=== PATIENT | male | born 2000 | race African-American/Black ===

== ENCOUNTER 2023-03-12 01:55 | Emergency (ER) | payer BC, SELFPAY ==
[2023-03-12 05:28] VITALS: BP 131/82; PULSE 84; RESP 15; TEMP 36.9; O2SAT 100
--- NOTE | 2023-03-12 05:53 | ED_ITS ---
HPI - General Adult General Chief complaint: Allergic Reaction Time Seen by Provider: 03/12/23 05:44 History of Present Illness HPI narrative: had patient is a 22-year-old gentleman who presents emergency department with chief complaint of allergic reaction. The patient reports yesterday he noticed started while the swelling in his hands and then started itching patient states he started to having itchy all over his entire body today and decided to come to the emergency department the patient is unsure of any new exposures did report that a few weeks ago he took some ibuprofen Related Data Allergies Allergy/AdvReac Type Severity Reaction Status Date / Time No Known Allergies Allergy Verified 03/12/23 05:56 Review of Systems Review of Systems: A 10 system review of systems was completed on the patient and is negative except for what is stated in the HPI. Nursing and ancillary documentation was reviewed. Exam Narrative: GENERAL: Well-appearing, well-nourished, and in no acute distress. HEAD: Normocephalic, atraumatic. EYES: PERRLA and EOMI. ENT: Nares clear, no rhinorrhea or epistaxis. Mucous membranes moist. NECK: Supple. CHEST: Clear to auscultation. No respiratory distress. HEART: Regular rate and rhythm. No murmur heard. Normal peripheral pulses. ABDOMEN: Soft, nontender, nondistended, normal active bowel sounds. EXTREMITIES: Normal range of motion. No edema. SKIN: Warm, dry, urticaria rash present. NEURO: No focal deficits. Alert and oriented x3. PSYCH: Normal mood and affect. Course Vital Signs Vital signs: Vital Signs Temperature 36.9 C 03/12/23 05:28 Pulse Rate 84 03/12/23 05:28 Respiratory Rate 15 03/12/23 05:28 Blood Pressure 131/82 03/12/23 05:28 Pulse Oximetry 100 03/12/23 05:28 Temperature 36.9 C 03/12/23 05:28 Pulse Rate 72 03/12/23 06:26 Respiratory Rate 15 03/12/23 06:26 Blood Pressure 131/74 03/12/23 06:26 Pulse Oximetry 100 03/12/23 06:26 Medical Decision Making [facility] Narrative Medical decision making narrative: differential diagnosis includes generalized urticaria allergic reaction patient received IV steroids IV Benadryl and IV Pepcid Vital Signs Vital Signs: Vital Signs Temperature 36.9 C 03/12/23 05:28 Pulse Rate 84 03/12/23 05:28 Respiratory Rate 15 03/12/23 05:28 Blood Pressure 131/82 03/12/23 05:28 Pulse Oximetry 100 03/12/23 05:28 Temperature 36.9 C 03/12/23 05:28 Pulse Rate 72 03/12/23 06:26 Respiratory Rate 15 03/12/23 06:26 Blood Pressure 131/74 03/12/23 06:26 Pulse Oximetry 100 03/12/23 06:26 Discharge Plan Discharge Clinical Impression: Allergic reaction, Urticaria Patient Disposition: Home, Self-Care Condition: Stable Instructions: Antibiotic Form, General Allergic Reaction (ED) Prescriptions: New prednisone 20 mg tablet 40 mg PO DAILY 5 Days Qty: 10 0RF Follow-up/Referrals: Elier Collins MD [Physician] - UNKNOWN,DOCTOR [Primary Care Provider] - Time of Disposition: 06:54
[2023-03-12] MEDS: diphenhydrAMINE HCl INJ 50 MG/ML VIAL IV PUSH (06:20)
[2023-03-12] MEDS: methylPREDNISolone SOD SUCC 125 MG VIAL IV PUSH (06:20)
[2023-03-12] MEDS: FAMOTIDINE 20 MG/2 ML VIAL IV PUSH (06:20)
[2023-03-12 06:26] VITALS: BP 131/74; PULSE 72; RESP 15; O2SAT 100
[2023-03-12 07:09] VITALS: BP 123/87; PULSE 87; RESP 15; O2SAT 100
== END 2023-03-12 07:10 | disposition home or self-care (01) ==
PROVIDERS: Emergency Provider Emergency Medicine
DX: L50.0 Allergic urticaria (principal)
CPT/HCPCS: 96374; 96375; 99284; J1200; J2930